=== PATIENT | female | born 1975 | race Caucasian/White ===

== ENCOUNTER 2021-12-26 01:37 | Inpatient (IN) ==
[2021-12-26 03:00] LABS: Hematocrit (blood only) 42.3 % (37-47); Hemoglobin 13.7 g/dL (12.0-16.0); Mean Corpuscular Hemoglobin 29.3 pg (25-34); Mean Corpuscular Hgb Conc 32.4 g/dL (32-36); Mean Corpuscular Volume 90.6 fL (80-100); Mean Platelet Volume 11.7 fL (7.4-10.4); Platelet Count 279 K/uL (130-400); RDW Coefficient of Variation 13.9 % (11.5-14.5); RDW Standard Deviation 46.2 fL (36.4-46.3); Red Blood Count 4.67 M/uL (4.2-5.4); White Blood Count 9.77 K/uL (4.8-10.8)
[2021-12-26 03:19] LABS: Acetaminophen < 3 ug/ml (10-30); Salicylate < 3.0 mg/dl (3.0-30)
[2021-12-26 03:20] LABS: Albumin Globulin Ratio 1.3 (0.9-2); BUN Creatinine Ratio 16.4 (10-20); Bilirubin,Total 0.3 mg/dl (0.2-1.0); Calcium 9.5 mg/dl (8.5-10.1); Creatinine Clr Calc Pharmacy 136.5 ml/min; Est GFR (African American) 127.8 ml/min; Est GFR (Non-African American) 110.3 ml/min; Globulin 3.2 gm/dl (2.5-4.0); Potassium 3.8 mmol/L (3.5-5.1); Total Protein 7.2 gm/dl (6.0-8.3)
[2021-12-26 03:45] LABS: Basophils # (auto) 0.01 K/uL (0-0.2); Basophils % (auto) 0.1 %; Echinocytes 1+; Eosinophils # (auto) 0.07 K/uL (0-0.5); Eosinophils % (auto) 0.7 %; Immature Granulocytes # (auto) 0.02 K/uL (0.00-0.02); Immature Granulocytes % (auto) 0.2 %; Lymphocytes # (auto) 2.47 K/uL (1.2-3.4); Lymphocytes % (auto) 25.3 %; Monocytes # (auto) 0.69 K/uL (0.11-0.59); Monocytes % (auto) 7.1 %; Neutrophils # (auto) 6.51 K/uL (1.4-6.5); Neutrophils % (auto) 66.6 %
[2021-12-26 03:47] LABS: Pregnancy Test, Urine Negative (Negative)
[2021-12-26 03:48] LABS: Appearance Urine Clear (Clear); Bilirubin Urine Negative (Negative); Blood Urine Negative (Negative); Color Urine Yellow; Epithelial Cell Urine Auto >30 /lpf (0-5); Glucose Urine UA Negative (Negative); Ketones Urine Trace (Negative); Leukocyte Esterase Urine Trace (Negative); Nitrite Urine Negative (Negative); Protein Urine Negative (Negative); Specific Gravity Urine 1.022 (1.000-1.030); Urobilinogen Urine Negative (Negative); pH Urine 5.5 (4.5-7.5)
[2021-12-26 04:01] LABS: Bacteria Urine Automated 2+ (Negative); Cast Urine Automated 0 /lpf (0-5); Mucus Urine Present (None Prsent); RBC Urine Automated 0-4 /hpf (0-4)
[2021-12-26 04:22] LABS: Amphetamines+Metham, Urine Neg (Neg); Barbiturates, Urine Neg (Neg); Benzodiazepine, Urine Neg (Neg); Cocaine, Urine Neg (Neg); MDMA (Ecstacy), Urine Neg (Neg); Methadone, Urine Neg (Neg); Opiate, Urine Neg (Neg); Phencyclidine, Urine Neg (Neg)
[2021-12-26] MEDS ORDERED: LITHIUM CARBONATE 300 MG TAB PO STA (06:18)
--- NOTE | 2021-12-26 07:52 | Emergency Department Note ---
Impression & Plan Thought disorder The case was signed out to Dr. Yousif for disposition ED Provider Note NAME: DILSHAD VAUGHN AGE: 46 SEX: F ARRIVES VIA: Police Cruiser INFORMANT: Patient ED PROVIDER(S): Corina Camara DO CHIEF COMPLAINT: Mental health evaluation PLAN: Disposition: The case will be signed out to Dr. Yousif at change of shift awaiting bed search Condition: Stable MEDICAL DECISION MAKING: This is a 46-year-old female patient with history of bipolar disorder and schizoaffective disorder from [facility] who presents to our emergency department with state police as a missing/endangered person. The patient was medically cleared. It is unclear whether or not the patient is taking her medications. Although, her lithium level is low. The ED psychiatric child welfare caseworker spoke with the patient's family and it seems that she may be falling commands from her phone which are guided guiding her to the point that she was unable to follow her GPS to return home to [place]. She was lost in [place]. They do not believe that she is safe to care for herself. She has not been able to return to her senior living in [place]. The 302 was signed as I believe she is in need of inpatient psychiatric care. A bed search will begin. Triage Nursing notes reviewed and agree with them. Additional history obtained from the family that spoke with our ED psychiatric child welfare caseworker Vital Signs: reviewed and unremarkable Differential diagnosis: Mood disorder; thought disorder, drug abuse, electrolyte abnormality Diagnostics interpreted by me: Laboratory studies: See below HPI: 46/F arrives for evaluation of mental health evaluation. The patient was brought to the emergency department by state police [place] after being listed as missing and endangered by her family. The patient left her court ordered mental health home in [place] and drove to [place] to visit a friend but then drove back towards the [facility] and ended up in [place]. Her family petitioned a 302 out of concern that she was a danger to herself as she was hallucinating and hearing voices from her phone and following with they were telling her to do. The patient does have a history of bipolar disorder and schizoaffective disorder and is not currently taking her medications according to the family members. ROS: See above HPI for pertinent positives & negatives. A total of 10 systems reviewed and were otherwise negative. PAST MEDICAL HISTORY:Bipolar disorder; schizoaffective disorder PAST SURGICAL HISTORY:The patient denied any surgical history FAMILY HISTORY:See Below SOCIAL HISTORY:The patient denies any drug or alcohol use; she lives in a group mental health home in [facility] HOME MEDICATIONS:See list ALLERGIES:None VITALS:See Below PHYSICAL EXAMINATION: HEENT: Head - normocephalic and atraumatic. Pupils are equal, round, and reactive to light. Extraocular eye muscles are intact, and sclera are anicteric. Nose - moist nasal mucosa without discharge. Mouth - moist buccal mucosa. Oropharynx is nonerythematous and there is no tonsillar exudate or edema noted. Neck: Supple; no thyromegaly or cervical lymphadenopathy Heart: Regular rate and rhythm. There is a normal S1 and S2 with no murmurs, clicks, or gallops appreciated. Lungs: Clear to auscultation bilaterally with no wheezes, rales, or rhonchi. Abdomen: Soft, completely nontender, nondistended, with good bowel sounds. There are no palpable pulsatile masses or hepatosplenomegaly. There is no guarding, rigidity, or rebound noted. Extremities: No evidence of cyanosis, clubbing, or edema. There are easily palpable peripheral pulses. Skin: warm and dry with good turgor and no rashes. ED COURSE: Times/Reassessments: 225: The patient was evaluated in room A5. A complete history and physical was performed. The ED psychiatric child welfare caseworker spoke with the patient's family members on the phone who voiced significant concern for the patient's safety. Laboratory studies were drawn and the patient was able to give a urine specimen so that we were able to get her medically cleared. The patient meets criteria for inpatient psychiatric care as she is unable to care for herself and make rational/safe decisions as she is following commands from her phone. 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 Required: No Beliefs That Will Affect Care: None Feels Safe at Home: Yes Assistive Devices: None Allergies Allergies Allergy/AdvReac Type Severity Reaction Status Date / Time No Known Allergies Allergy Verified 12/26/21 01:56 Home Meds Home Medications Medication Instructions Recorded Confirmed lithium carbonate 600 mg capsule 600 mg PO BID 12/26/21 12/26/21 olanzapine 15 mg disintegrating 15 mg PO HS 12/26/21 12/26/21 tablet Results & Data (ED) Vital Signs Vital Signs - 24 hr 12/26/21 01:42 12/26/21 03:30 12/26/21 10:22 Temperature 37 C Temperature Source Oral Pulse Rate [Right Finger] 65 87 88 Pulse Rhythm [Right Finger] Regular Pulse Strength [Right Finger] Normal Respiratory Rate 18 18 18 Respiratory Effort / Characteristics Non-Labored Spontaneous Non-Labored Spontaneous Respiratory Depth Normal Normal Blood Pressure [Left Arm] 128/82 146/91 H 129/81 Blood Pressure Mean [Left Arm] 97 109 97 Blood Pressure Position [Left Arm] Lying Pulse Oximetry 98 99 99 Oxygen Delivery Method Room Air Room Air Room Air Sepsis Recent Fever Within 48 Hours No Sepsis New/Unexplained Change in Mental Status N/A Sepsis Action Taken by Nursing No Action Required 12/26/21 10:32 Temperature Temperature Source Pulse Rate [Right Finger] Pulse Rhythm [Right Finger] Pulse Strength [Right Finger] Respiratory Rate Respiratory Effort / Characteristics Respiratory Depth Blood Pressure [Left Arm] Blood Pressure Mean [Left Arm] Blood Pressure Position [Left Arm] Pulse Oximetry Oxygen Delivery Method Room Air Sepsis Recent Fever Within 48 Hours Sepsis New/Unexplained Change in Mental Status Sepsis Action Taken by Nursing Laboratory Data Result diagrams: 12/26/21 02:41 12/26/21 02:41 Lab Results 12/26/21 12/26/21 12/26/21 Range/Units 02:41 02:41 02:41 WBC 9.77 (4.8-10.8) K/uL RBC 4.67 (4.2-5.4) M/uL Hgb 13.7 (12.0-16.0) g/dL Hct 42.3 (37-47) % MCV 90.6 (80-100) fL MCH 29.3 (25-34) pg MCHC 32.4 (32-36) g/dL RDW Std Deviation 46.2 (36.4-46.3) fL RDW Coeff of Mika 13.9 (11.5-14.5) % Plt Count 279 (130-400) K/uL MPV 11.7 H (7.4-10.4) fL Immature Gran % (Auto) 0.2 % Neut % (Auto) 66.6 % Lymph % (Auto) 25.3 % Gibson % (Auto) 7.1 % Eos % (Auto) 0.7 % Baso % (Auto) 0.1 % Neut # (Auto) 6.51 H (1.4-6.5) K/uL Lymph # (Auto) 2.47 (1.2-3.4) K/uL Gibson # (Auto) 0.69 H (0.11-0.59) K/uL Eos # (Auto) 0.07 (0-0.5) K/uL Baso # (Auto) 0.01 (0-0.2) K/uL Immature Gran # (Auto) 0.02 (0.00-0.02) K/uL Echinocytes 1+ Sodium 138 (136-145) mmol/L Potassium 3.8 (3.5-5.1) mmol/L Chloride 105 (98-107) mmol/L Carbon Dioxide 28 (21-32) mmol/L Anion Gap 5 (3-11) BUN 10 (6-23) mg/dl Creatinine 0.61 (0.6-1.2) mg/dl Est Cr Clr Drug Dosing 136.5 ml/min Est GFR ( Amer) 127.8 ml/min Est GFR (Non-Af Amer) 110.3 ml/min BUN/Creatinine Ratio 16.4 (10-20) Glucose 91 (70-99(Fasting)) mg/dl Calcium 9.5 (8.5-10.1) mg/dl Total Bilirubin 0.3 (0.2-1.0) mg/dl AST 13 (13-39) U/L ALT 10 (7-52) U/L Alkaline Phosphatase 62 (34-104) U/L Total Protein 7.2 (6.0-8.3) gm/dl Albumin 4.0 (3.4-5.0) gm/dl Globulin 3.2 (2.5-4.0) gm/dl Albumin/Globulin Ratio 1.3 (0.9-2) TSH 2.036 (0.300-4.500) uIu/ml Salicylates (3.0-30) mg/dl Acetaminophen (10-30) ug/ml [place] (0.6-1.2) mmol/L Ethyl Alcohol mg/dL (<10.0) mg/dl SARS-CoV-2, RNA, NAAT (NEGATIVE) 12/26/21 12/26/21 12/26/21 Range/Units 02:41 02:41 02:41 WBC (4.8-10.8) K/uL RBC (4.2-5.4) M/uL Hgb (12.0-16.0) g/dL Hct (37-47) % MCV (80-100) fL MCH (25-34) pg MCHC (32-36) g/dL RDW Std Deviation (36.4-46.3) fL RDW Coeff of Mika (11.5-14.5) % Plt Count (130-400) K/uL MPV (7.4-10.4) fL Immature Gran % (Auto) % Neut % (Auto) % Lymph % (Auto) % Gibson % (Auto) % Eos % (Auto) % Baso % (Auto) % Neut # (Auto) (1.4-6.5) K/uL Lymph # (Auto) (1.2-3.4) K/uL Gibson # (Auto) (0.11-0.59) K/uL Eos # (Auto) (0-0.5) K/uL Baso # (Auto) (0-0.2) K/uL Immature Gran # (Auto) (0.00-0.02) K/uL Echinocytes Sodium (136-145) mmol/L Potassium (3.5-5.1) mmol/L Chloride (98-107) mmol/L Carbon Dioxide (21-32) mmol/L Anion Gap (3-11) BUN (6-23) mg/dl Creatinine (0.6-1.2) mg/dl Est Cr Clr Drug Dosing ml/min Est GFR ( Amer) ml/min Est GFR (Non-Af Amer) ml/min BUN/Creatinine Ratio (10-20) Glucose (70-99(Fasting)) mg/dl Calcium (8.5-10.1) mg/dl Total Bilirubin (0.2-1.0) mg/dl AST (13-39) U/L ALT (7-52) U/L Alkaline Phosphatase (34-104) U/L Total Protein (6.0-8.3) gm/dl Albumin (3.4-5.0) gm/dl Globulin (2.5-4.0) gm/dl Albumin/Globulin Ratio (0.9-2) TSH (0.300-4.500) uIu/ml Salicylates < 3.0 L (3.0-30) mg/dl Acetaminophen < 3 L (10-30) ug/ml [place] 0.2 L (0.6-1.2) mmol/L Ethyl Alcohol mg/dL < 10.0 (<10.0) mg/dl SARS-CoV-2, RNA, NAAT (NEGATIVE) 12/26/21 Range/Units 04:10 WBC (4.8-10.8) K/uL RBC (4.2-5.4) M/uL Hgb (12.0-16.0) g/dL Hct (37-47) % MCV (80-100) fL MCH (25-34) pg MCHC (32-36) g/dL RDW Std Deviation (36.4-46.3) fL RDW Coeff of Mika (11.5-14.5) % Plt Count (130-400) K/uL MPV (7.4-10.4) fL Immature Gran % (Auto) % Neut % (Auto) % Lymph % (Auto) % Gibson % (Auto) % Eos % (Auto) % Baso % (Auto) % Neut # (Auto) (1.4-6.5) K/uL Lymph # (Auto) (1.2-3.4) K/uL Gibson # (Auto) (0.11-0.59) K/uL Eos # (Auto) (0-0.5) K/uL Baso # (Auto) (0-0.2) K/uL Immature Gran # (Auto) (0.00-0.02) K/uL Echinocytes Sodium (136-145) mmol/L Potassium (3.5-5.1) mmol/L Chloride (98-107) mmol/L Carbon Dioxide (21-32) mmol/L Anion Gap (3-11) BUN (6-23) mg/dl Creatinine (0.6-1.2) mg/dl Est Cr Clr Drug Dosing ml/min Est GFR ( Amer) ml/min Est GFR (Non-Af Amer) ml/min BUN/Creatinine Ratio (10-20) Glucose (70-99(Fasting)) mg/dl Calcium (8.5-10.1) mg/dl Total Bilirubin (0.2-1.0) mg/dl AST (13-39) U/L ALT (7-52) U/L Alkaline Phosphatase (34-104) U/L Total Protein (6.0-8.3) gm/dl Albumin (3.4-5.0) gm/dl Globulin (2.5-4.0) gm/dl Albumin/Globulin Ratio (0.9-2) TSH (0.300-4.500) uIu/ml Salicylates (3.0-30) mg/dl Acetaminophen (10-30) ug/ml [place] (0.6-1.2) mmol/L Ethyl Alcohol mg/dL (<10.0) mg/dl SARS-CoV-2, RNA, NAAT NEGATIVE (NEGATIVE) Administered Medications [place] Carbonate ([place] Carbonate 300 Mg Tab) 600 mg PO BID GONSALO Stop: 01/25/22 20:59 Last Admin: 12/26/21 21:51 Dose: 600 mg Documented by: [id number] Olanzapine (Olanzapine 5 Mg Tablet) 15 mg PO HS GONSALO Stop: 01/25/22 20:59 Last Admin: 12/26/21 21:51 Dose: 15 mg Documented by: [id number] Discontinued Medications [place] Carbonate ([place] Carbonate 300 Mg Tab) 600 mg PO NOW STA Stop: 12/26/21 06:19 Last Admin: 12/26/21 06:45 Dose: 600 mg Documented by: [id number] Olanzapine (Olanzapine 5 Mg Tablet) 5 mg PO NOW STA Stop: 12/26/21 09:46 Last Admin: 12/26/21 10:18 Dose: 5 mg Documented by: [id number] Discharge Plan Visit Data Chief Complaint: Mental Health Evaluation ED Provider: Corina Camara Discharge Problem: Thought disorder Patient Disposition: Admitted As Inpatient Discharge Instructions Interventions: ED Discharge Assessment Last Done: 12/26/21 10:32
[2021-12-26] MEDS ORDERED: OLANZapine 5 MG TABLET PO STA (09:45)
[2021-12-26] MEDS ORDERED: ALUMINUM/MAGNESIUM SUSP 30 ML UDC PO PRN (10:39)
[2021-12-26] MEDS ORDERED: BISMUTH SUBSALICYLATE LIQD 236 ML PO PRN (10:39)
[2021-12-26] MEDS ORDERED: SODIUM CHLORIDE 0.65% NA SOLN 45 ML (OCEAN) PRN (10:39)
[2021-12-26] MEDS ORDERED: MAGNESIUM HYDROXIDE SUSP 30 ML UDC PO PRN (10:39)
[2021-12-26] MEDS ORDERED: hydrOXYzine HCl 25 MG TAB PO PRN ×2 (10:39)
[2021-12-26] MEDS ORDERED: ACETAMINOPHEN 325 MG TAB PO PRN (10:39)
--- NOTE | 2021-12-26 13:03 | History & Physical ---
Date of Service December 26, 2021 Impression / Recommendations Impression 46 yo female with reported history of schizophrenia and/or bipolar (so schizoaffective most likely) presented to ED via police, initial 302 petition was by a cousin in [place], as she eloped from her [facility] and has been driving around for the past 12 days and not taking her prescription medication resulting in disorganization and psychosis (manic in presentation). MNPR given level of psychosis (1) Schizoaffective disorder: The patient was admitted to the [facility] ([facility]) on q15 min checks (behavioral with suicide precautions) for safety. The patient will participate in group, recreational, and milieu therapies and will be offered additional individual and family sessions as clinically appropriate. The patient is willing to resume her previous doses of Ferney and Zyprexa and voiced reasonable understanding of risks/benefits/alternatives. May benefit form an atypical that can be given as ALMEIDA. Will attempt fasting labs in am. Inventory Assets Strengths: seems intelligent, has services in [place] [facility], concerned family Needs: restart medication, coordination with outpatient services Suicide Risk Level Suicide Risk Level: Moderate (q15 min suicide checks) Suicide Risk Level Comments: patient is behaving unpredictably and denies hx of attempts though family says otherwise, hx of repeated hospitalizations. Risk Factors Assessment : Yes Do You Have Access To A Gun?: No Health Problems: No Mental Health Diagnoses: Yes Substance Use Disorders: No Previous Psychiatric Hospitalization: Yes Protective Factors Assessment Employed: No Supportive Family: Yes Psychiatric History Identifying Data TYESHA VAUGHN is a 46-year-old F who currently lives in supportive housing in [place], has a history of bipolar or schizoaffective disorder, and was admitted on 12/26/21 10:40 on a 302 involuntary commitment for disorganized behavior. Chief Complaint "I guess I should have gone straight back to [place]." History of Present Illness The patient is an unreliable historian although she seems superficially cooperative she has short attention and cannot expand on details. I attempted to confirm the information provided in the ED. The patient states she's employed by [employer] and would like to work between [place]. She denies hearing voices and states that her cousin is "just trying to play tricks". She denies having any legal charges. She states she's been taking her lithium (level says otherwise). It is unclear when she ran out of Zyprexa. She seemed surprised to hear she was on an involuntary commitment. Reviewed her rights that in [place] this is for up to 120 hrs. She denies having any side effects to meds and states she's adjusted to them over the years. She cannot explain why she was driving around [place] other than [address] is confusing and "kept getting on and off the highway." She thanked me for my timing abruptly ending the interview. She was cooperative with Ferney 600 mgX1 and several hours later Zyprexa 5 mg as ordered. She was not agitated or aggressive, just confused/anxious. As per ED CM: Met with patient upon arrival to ED to complete mental health evaluation. Tyesha stated she is from [place], [place]. She stated she has been traveling to the [facility] to visit family. Tyesha was unable to state family she was visiting. She stated she made her way to [place] and turned around because she was "concerned the person I was going to visit would have conflict." Tyesha stated she has been driving around [place] for two days because she was having difficulty navigating the roads. Tyesha stated she couldn't "navigate the medians." She stated she has been sleeping in her car since in [place]. Tyesha denies any SI and denies stating she would "rather on the highway." Tyesha denies any prior suicide attempts. However, her cousin/Radha stated she "tried to overdose on pills with in the past year." Tyesha denies HI or aggression. She denies report of cousin that she went to [facility] that has a no contact order on her for stalking and harassment which Tyesha spend time in [facility] for in the past. Tyesha would start to answer question but appears confused and unable to complete a thought. Tyesha refused to provide names of her outpatient psychiatrist and therapist stating "I know I'm not leaving here and don't want them bothered. Tyesha stated she has a "cold header that is the it audit manager of person and gives reports to the three dimensional map modeler that I'm a productive member of society. She stated she is "probated through court." She admits to living in Supportive Housing in [place], [place]. She refused to provide contact information for Supportive Housing home but did provide consent for this CM to call the home. She stated the name of home was [facility]. Tyesha eventually provided phone number to supportive living home and this CM was unsuccessful at reaching anyone by phone. Tyesha appears very guarded and suspicious. Call to [place]/Radha to obtain additional information and clarification. Radha stated Tyesha has been calling her several times a day. She stated Tyesha told her she ran out of her medication approx. 12 days ago. (Tyesha reported she is taking her medication. However, lithium level low at 0.2). Radha stated Tyesha is manic, hallucinating, and delusional. Radha stated Tyesha is hearing voices and whispers through her phone which is reason she is unable to navigate her way home. She stated voices are telling her directions to drive. Radha stated Tyesha told her that she is also hearing voices telling "stories of graphic violence, chemical bombs, hostage situations, and the killing of people." Sumamelissa stated Tyesha called police on [place] and her father with report that they were creating chemical bombs and killing people. Radha confirm that [place] has a conservator through the court that monitors her treatment and wellbeing. Radha stated Tyesha was traveling to see her mother who refused her visit 3X before patient turned around to return to [place]. Radha stated patient believes her phone is hacked. Radha stated patient was charged and spent time in [facility] for stalking, harrassment, and violating a no contact order. Radha stated patient told her she went to [facility] when she was not home. Tyesha has been inpatient multiple times in the past, primarily in [place]. Past Psychiatric History Current Psychiatric Diagnosis: Schizophrenia Do You Have Access To A Gun?: No Describe Attempts in the Past: Cousin stated she "tried to overdose on pills with in the past year." Past Medication Trials: per surescripts Haldol 7 mg BID, Latuda 40 mg, Ferney 600 mg BID, Zyprexa Allergies Allergy/AdvReac Type Severity Reaction Status Date / Time No Known Allergies Allergy Verified 12/26/21 01:56 Home Medications Medication Instructions Recorded Confirmed Type lithium carbonate 600 mg capsule 600 mg PO BID 12/26/21 12/26/21 History olanzapine 15 mg disintegrating 15 mg PO HS 04/29/22 04/29/22 History tablet Family History Family History of: Refuses To Discuss Alcohol History Hx of Alcohol Use Over the Past 12 Months: No AUDIT Total Score: 1 Smoking Use Have You Smoked or Used Tobacco Products in the Last 30 Days: No Smoking Status: Never smoker Substance History Hx of Prescription Med Misuse Over the Past 12 Months: No Hx of Over the Counter Med Misuse Over the Past 12 Months: No Hx of Inhalent Misuse Over the Past 12 Months: No Hx of Organic Substance Use Over the Past 12 Months: No Hx of Illegal Substances/Street Drug Use Over Past 12 Months: No Problems as a Result of Past Substance Use: None Identified Personal History Living Arrangements: Supervised Living Marital Status: Single Number Of Children: no known Beliefs That Will Affect Care: None Current Legal Problems: Yes (likely on probation after fci time for harassment/stalking of a [employer] prof.) Psychological Trauma History Comment: patient unable to reliably give hx Patient History Medical History (Updated 12/26/21 @ 15:45 by Mariangel Kee MD) No known health problems Social History Smoking Status: Never smoker Preferred Language: Russian Communication Ability: Impaired Communication Ability Comment: Talking in circles Survey Workers Supervisor Required: No Beliefs That Will Affect Care: None Feels Safe at Home: Yes Assistive Devices: None Review of Systems Review of Systems: All systems reviewed & are unremarkable except as noted in HPI & below Physical Exam Psychiatric: Orientation: alert Apperance: appropriately dressed and appropriately groomed Eye Contact: good eye contact Motor Behavior: no abnormal motor movements Speech: normal rate/rhythm/volume of speech Affect: + blunted affect Mood: + anxious mood Thought Process: + tangential thought process Thought Content: + delusions Suicidal Thoughts: denies suicidal thoughts Homicidal Thoughts: denies homicidal thoughts Hallucinations: no auditory hallucinations and no visual hallucinations Cognition: language grossly intact; + attention not intact Insight: + poor insight Judgement: + poor judgement Vital Signs (Past 24 Hours): Last Vital Signs Temp 37 C 12/26/21 10:51 Pulse 88 12/26/21 10:51 Resp 18 12/26/21 10:51 BP 129/81 12/26/21 10:51 Pulse Ox 99 12/26/21 10:51 Exam Statement: A physical exam was performed in the ED by Dr. Camara for the purposes of medical clearance. I accept that physical as correct and adequate for the purposes of the inpatient physical exam. Results & Data ([facility]) Laboratory Results Laboratory Results - last 24 hr 12/26/21 12/26/21 12/26/21 02:41 02:41 02:41 WBC 9.77 RBC 4.67 Hgb 13.7 Hct 42.3 MCV 90.6 MCH 29.3 MCHC 32.4 RDW Std Deviation 46.2 RDW Coeff of Mika 13.9 Plt Count 279 MPV 11.7 H Immature Gran % (Auto) 0.2 Neut % (Auto) 66.6 Lymph % (Auto) 25.3 Real % (Auto) 7.1 Eos % (Auto) 0.7 Baso % (Auto) 0.1 Neut # (Auto) 6.51 H Lymph # (Auto) 2.47 Real # (Auto) 0.69 H Eos # (Auto) 0.07 Baso # (Auto) 0.01 Immature Gran # (Auto) 0.02 Echinocytes 1+ Sodium 138 Potassium 3.8 Chloride 105 Carbon Dioxide 28 Anion Gap 5 BUN 10 Creatinine 0.61 Est Cr Clr Drug Dosing 136.5 Est GFR ( Amer) 127.8 Est GFR (Non-Af Amer) 110.3 BUN/Creatinine Ratio 16.4 Glucose 91 Calcium 9.5 Total Bilirubin 0.3 AST 13 ALT 10 Alkaline Phosphatase 62 Total Protein 7.2 Albumin 4.0 Globulin 3.2 Albumin/Globulin Ratio 1.3 TSH 2.036 Urine Color Urine Appearance Urine pH Ur Specific [place] Urine Protein Urine Glucose (UA) Urine Ketones Urine Blood Urine Nitrite Urine Bilirubin Urine Urobilinogen Ur Leukocyte Esterase Urine WBC (Auto) Urine RBC (Auto) U Hyaline Cast (Auto) U Epithel Cells (Auto) Urine Bacteria (Auto) Urine Mucus Urine Test Salicylates Urine Opiates Screen Ur Methadone, Qual Acetaminophen Urine Barbiturates Ur Phencyclidine (PCP) U Amphetamin/Meth Scrn MDMA (Ecstasy) Screen U Benzodiazepines Scrn Ferney Ur Cocaine Metabolite U Marijuana (THC) Screen Ethyl Alcohol mg/dL SARS-CoV-2, RNA, NAAT 12/26/21 12/26/21 12/26/21 02:41 02:41 02:41 WBC RBC Hgb Hct MCV MCH MCHC RDW Std Deviation RDW Coeff of Mika Plt Count MPV Immature Gran % (Auto) Neut % (Auto) Lymph % (Auto) Real % (Auto) Eos % (Auto) Baso % (Auto) Neut # (Auto) Lymph # (Auto) Real # (Auto) Eos # (Auto) Baso # (Auto) Immature Gran # (Auto) Echinocytes Sodium Potassium Chloride Carbon Dioxide Anion Gap BUN Creatinine Est Cr Clr Drug Dosing Est GFR ( Amer) Est GFR (Non-Af Amer) BUN/Creatinine Ratio Glucose Calcium Total Bilirubin AST ALT Alkaline Phosphatase Total Protein Albumin Globulin Albumin/Globulin Ratio TSH Urine Color Urine Appearance Urine pH Ur Specific [place] Urine Protein Urine Glucose (UA) Urine Ketones Urine Blood Urine Nitrite Urine Bilirubin Urine Urobilinogen Ur Leukocyte Esterase Urine WBC (Auto) Urine RBC (Auto) U Hyaline Cast (Auto) U Epithel Cells (Auto) Urine Bacteria (Auto) Urine Mucus Urine Test Salicylates < 3.0 L Urine Opiates Screen Ur Methadone, Qual Acetaminophen < 3 L Urine Barbiturates Ur Phencyclidine (PCP) U Amphetamin/Meth Scrn MDMA (Ecstasy) Screen U Benzodiazepines Scrn Ferney 0.2 L Ur Cocaine Metabolite U Marijuana (THC) Screen Ethyl Alcohol mg/dL < 10.0 SARS-CoV-2, RNA, NAAT 12/26/21 12/26/21 12/26/21 04:10 Unknown Unknown WBC RBC Hgb Hct MCV MCH MCHC RDW Std Deviation RDW Coeff of Mika Plt Count MPV Immature Gran % (Auto) Neut % (Auto) Lymph % (Auto) Real % (Auto) Eos % (Auto) Baso % (Auto) Neut # (Auto) Lymph # (Auto) Real # (Auto) Eos # (Auto) Baso # (Auto) Immature Gran # (Auto) Echinocytes Sodium Potassium Chloride Carbon Dioxide Anion Gap BUN Creatinine Est Cr Clr Drug Dosing Est GFR ( Amer) Est GFR (Non-Af Amer) BUN/Creatinine Ratio Glucose Calcium Total Bilirubin AST ALT Alkaline Phosphatase Total Protein Albumin Globulin Albumin/Globulin Ratio TSH Urine Color Yellow Urine Appearance Clear Urine pH 5.5 Ur Specific [place] 1.022 Urine Protein Negative Urine Glucose (UA) Negative Urine Ketones Trace H Urine Blood Negative Urine Nitrite Negative Urine Bilirubin Negative Urine Urobilinogen Negative Ur Leukocyte Esterase Trace H Urine WBC (Auto) 5-10 H Urine RBC (Auto) 0-4 U Hyaline Cast (Auto) 0 U Epithel Cells (Auto) >30 H Urine Bacteria (Auto) 2+ H Urine Mucus Present A Urine Test Salicylates Urine Opiates Screen Neg Ur Methadone, Qual Neg Acetaminophen Urine Barbiturates Neg Ur Phencyclidine (PCP) Neg U Amphetamin/Meth Scrn Neg MDMA (Ecstasy) Screen Neg U Benzodiazepines Scrn Neg Ferney Ur Cocaine Metabolite Neg U Marijuana (THC) Screen Neg Ethyl Alcohol mg/dL SARS-CoV-2, RNA, NAAT NEGATIVE 12/26/21 Unknown WBC RBC Hgb Hct MCV MCH MCHC RDW Std Deviation RDW Coeff of Miak Plt Count MPV Immature Gran % (Auto) Neut % (Auto) Lymph % (Auto) Real % (Auto) Eos % (Auto) Baso % (Auto) Neut # (Auto) Lymph # (Auto) Real # (Auto) Eos # (Auto) Baso # (Auto) Immature Gran # (Auto) Echinocytes Sodium Potassium Chloride Carbon Dioxide Anion Gap BUN Creatinine Est Cr Clr Drug Dosing Est GFR ( Amer) Est GFR (Non-Af Amer) BUN/Creatinine Ratio Glucose Calcium Total Bilirubin AST ALT Alkaline Phosphatase Total Protein Albumin Globulin Albumin/Globulin Ratio TSH Urine Color Urine Appearance Urine pH Ur Specific [place] Urine Protein Urine Glucose (UA) Urine Ketones Urine Blood Urine Nitrite Urine Bilirubin Urine Urobilinogen Ur Leukocyte Esterase Urine WBC (Auto) Urine RBC (Auto) U Hyaline Cast (Auto) U Epithel Cells (Auto) Urine Bacteria (Auto) Urine Mucus Urine Test Negative Salicylates Urine Opiates Screen Ur Methadone, Qual Acetaminophen Urine Barbiturates Ur Phencyclidine (PCP) U Amphetamin/Meth Scrn MDMA (Ecstasy) Screen U Benzodiazepines Scrn Ferney Ur Cocaine Metabolite U Marijuana (THC) Screen Ethyl Alcohol mg/dL SARS-CoV-2, RNA, NAAT Current Inpatient Medications Current Inpatient Medications: Current Inpatient Medications Acetaminophen (Acetaminophen 325 Mg Tab) 650 mg PO Q4H PRN PRN Reason: Headache or Minor Fever Stop: 01/25/22 10:38 Al Hydrox/Mg Hydrox/Simethicone (Aluminum/Magnesium Susp 30 Ml Udc) 30 ml PO Q4H PRN PRN Reason: GI Upset Stop: 01/25/22 10:38 Bismuth Subsalicylate (Bismuth Subsalicylate Liqd 236 Ml) 15 ml PO PRN PRN PRN Reason: Loose Stool Stop: 01/25/22 10:38 Hydroxyzine HCl (Hydroxyzine Hcl 25 Mg Tab) 50 mg PO HSZ PRN PRN Reason: Insomnia Stop: 01/25/22 10:38 Hydroxyzine HCl (Hydroxyzine Hcl 25 Mg Tab) 25 mg PO Q4H PRN PRN Reason: Anxiety Stop: 01/25/22 10:38 Ferney Carbonate (Ferney Carbonate 300 Mg Tab) 600 mg PO BID GONSALO Stop: 01/25/22 20:59 Magnesium Hydroxide (Magnesium Hydroxide Susp 30 Ml Udc) 30 ml PO DAILY PRN PRN Reason: Constipation Stop: 01/25/22 10:38 Olanzapine (Olanzapine 5 Mg Tablet) 15 mg PO HS GONSALO Stop: 01/25/22 20:59 Sodium Chloride (Sodium Chloride 0.65% Na Soln 45 Ml ([place])) 1 - 2 sprays NA PRN PRN PRN Reason: Nasal Dryness/Congestion Stop: 01/25/22 10:38
--- NOTE | 2021-12-26 14:59 | Emergency Department Note ---
ED Visit Note Patient was signed out to me awaiting mental health admission. She was accepted at [address] .
[2021-12-26] MEDS: LITHIUM CARBONATE 300 MG TAB PO SCH (21:51)
[2021-12-26] MEDS: OLANZapine 5 MG TABLET PO SCH (21:51)
[2021-12-27 07:57] LABS: Chol HDL Ratio 2.5 (0-5)
[2021-12-27] MEDS: LITHIUM CARBONATE 300 MG TAB PO SCH ×2 (08:52→21:41)
--- NOTE | 2021-12-27 16:50 | Psychiatric Progress Note ---
Date of Service December 27, 2021 Impression / Recommendations Impression 46 yo woman with reported history of schizoaffective disorder presented to ED via police, initial 302 petition was by a cousin, as she eloped from her prison in [place] and has been driving around for the past 12 days and not taking her prescription medication resulting in disorganization and psychosis (manic in presentation). 302 expires on 01/01 at ~5am. Diagnostically consistent with acute isabella/psychosis from schizoaffective disorder. The patient is deemed unstable and requires psychiatric hospitalization for diagnostic clarification, safety and stabilization, medication management and development of further coping skills. MNPR due to paranoid and acute psychosis 12/27/21: Encouragingly slept well and is taking her medications but remains very guarded and unable to tolerate prolonged interactions. Agreed to sign ROIs after staff help her locate phone numbers in her phone. Reviewed metabolic labs which were normal. Tolerating re-initiation of lithium and olanzapine. (1) Schizoaffective disorder: 12/17/21: Continue with Li and olanzapine. 12/26/21: The patient was admitted to the [facility]) on q15 min checks (behavioral with suicide precautions) for safety. The patient will participate in group, recreational, and milieu therapies and will be offered additional individual and family sessions as clinically appropriate. The patient is willing to resume her previous doses of [place] and Zyprexa and voiced reasonable understanding of risks/benefits/alternatives. May benefit form an atypical that can be given as ALMEIDA. Will attempt fasting labs in am. Suicide Risk Level Suicide Risk Level: Moderate (q15 min suicide checks) Suicide Risk Level Comments: Acute risk is moderate given acute psychosis with paranoia and recent disorganization but denies SI today. Risk Factors Assessment : Yes Do You Have Access To A Gun?: No Health Problems: No Mental Health Diagnoses: Yes Substance Use Disorders: No Previous Psychiatric Hospitalization: Yes Protective Factors Assessment Employed: No Supportive Family: Yes Interval History Identifying Information DILSHAD VAUGHN is a 46-year-old F who currently lives in supportive housing in [place], has a history of bipolar or schizoaffective disorder, and was admitted on 12/26/21 10:40 on a 302 involuntary commitment for disorganized behavior. Chief Complaint "I'm fine I guess". Review of Systems Sleep Information Total Hours of Sleep: 8.5 Meal Information Percent Meal Consumed - Breakfast: 100 Percent Meal Consumed - Lunch: 100 Percent Meal Consumed - Dinner: 0 Nutrition Comment: Pt is currently sleeping Subjective Subjective Patient was seen & assessed and interval progress reviewed with treatment team nursing and social work. Remains in behavioral control though becomes irritable easily. States frustration with 302 noting that she was just trying to find her way onto [address] from [place] "I was just stuck because they had backroads to get there". Tolerating lithium and olanzapine without any side effects. Reviewed results of fasting labwork. She agreed to sign ROIs for her provider in [place] and family in [place]. Fairly guarded and unable to tolerate prolonged discussion. States she slept well. Physical Exam Psychiatric Orientation: alert Apperance: appropriately dressed and appropriately groomed Eye Contact: good eye contact Motor Behavior: no abnormal motor movements Speech: normal rate/rhythm/volume of speech Affect: + blunted affect Mood: + anxious mood Thought Process: + tangential thought process Thought Content: + delusions Suicidal Thoughts: denies suicidal thoughts Homicidal Thoughts: denies homicidal thoughts Hallucinations: no auditory hallucinations and no visual hallucinations Cognition: language grossly intact; + attention not intact Insight: + poor insight Judgement: + poor judgement Vital Signs (Past 24 Hours) Last Vital Signs Temp 36.9 C 12/27/21 06:42 Pulse 85 12/27/21 06:42 Resp 18 12/27/21 06:42 BP 86/66 L 12/27/21 06:43 Pulse Ox 99 12/26/21 10:51 Results & Data ([facility]) Laboratory Results Laboratory Results - last 24 hr 12/27/21 06:49 Fasting Glucose 90 Triglycerides 51 Cholesterol 135 LDL Cholesterol, Calc 71 VLDL Cholesterol, Calc 10 HDL Cholesterol 54 Cholesterol/HDL Ratio 2.5 Current Inpatient Medications Current Inpatient Medications: Current Inpatient Medications Acetaminophen (Acetaminophen 325 Mg Tab) 650 mg PO Q4H PRN PRN Reason: Headache or Minor Fever Stop: 01/25/22 10:38 Al Hydrox/Mg Hydrox/Simethicone (Aluminum/Magnesium Susp 30 Ml Udc) 30 ml PO Q4H PRN PRN Reason: GI Upset Stop: 01/25/22 10:38 Bismuth Subsalicylate (Bismuth Subsalicylate Liqd 236 Ml) 15 ml PO PRN PRN PRN Reason: Loose Stool Stop: 01/25/22 10:38 Hydroxyzine HCl (Hydroxyzine Hcl 25 Mg Tab) 50 mg PO HSZ PRN PRN Reason: Insomnia Stop: 01/25/22 10:38 Hydroxyzine HCl (Hydroxyzine Hcl 25 Mg Tab) 25 mg PO Q4H PRN PRN Reason: Anxiety Stop: 01/25/22 10:38 [place] Carbonate ([place] Carbonate 300 Mg Tab) 600 mg PO BID GONSALO Stop: 01/25/22 20:59 Last Admin: 12/27/21 08:52 Dose: 600 mg Documented by: Magnesium Hydroxide (Magnesium Hydroxide Susp 30 Ml Udc) 30 ml PO DAILY PRN PRN Reason: Constipation Stop: 01/25/22 10:38 Olanzapine (Olanzapine 5 Mg Tablet) 15 mg PO HS GONSALO Stop: 01/25/22 20:59 Last Admin: 12/26/21 21:51 Dose: 15 mg Documented by: Sodium Chloride (Sodium Chloride 0.65% Na Soln 45 Ml ([place])) 1 - 2 sprays NA PRN PRN PRN Reason: Nasal Dryness/Congestion Stop: 01/25/22 10:38 Mental Health & Subst Abuse Tx Therapist Name of Therapist: Patient reports therapist, but would not give name
[2021-12-27] MEDS: OLANZapine 5 MG TABLET PO SCH (21:41)
[2021-12-28] MEDS: LITHIUM CARBONATE 300 MG TAB PO SCH ×2 (08:53→21:11)
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
[2021-12-28] MEDS: OLANZapine 5 MG TABLET PO SCH (21:11)
[2021-12-29] MEDS: LITHIUM CARBONATE 300 MG TAB PO SCH ×2 (08:49→21:39)
--- NOTE | 2021-12-29 08:58 | Psychiatric Progress Note ---
Date of Service December 29, 2021 Impression / Recommendations Impression 46 yo woman with reported history of schizoaffective disorder presented to ED via police, initial 302 petition was by a cousin, as she eloped from her jail in [place] and has been driving around for the past 12 days and not taking her prescription medication resulting in disorganization and psychosis (manic in presentation). 302 expires on 12/31 at ~5am. Diagnostically consistent with acute isabella/psychosis from schizoaffective disorder. The patient is deemed unstable and requires psychiatric hospitalization for diagnostic clarification, safety and stabilization, medication management and development of further coping skills. MNPR due to paranoid and acute psychosis 12/29/21: Continues to sleep well, tolerating medications, still guarded but able to tolerate more discussions about recent events and not brining up any paranoia or delusions such as prior to admission. Continues to have poor insight about decision to abruptly leave jail 2 weeks ago. Reviewed conversatorship paperwork, they have no legal sway in terms of psychiatric hospitalization, more for being able to help manage finances. (1) Schizoaffective disorder: 12/29/21: Continue medications and tx plan. Li level in AM. Spoke with jail director. Reviewed conservatorship legal paperwork. Will attempt to contact her psychiatrist. 12/28/21: Continue medications and tx plan. Will contact conservator tomorrow. 12/27/21: Continue with Li and olanzapine. 12/26/21: The patient was admitted to the [facility] ([facility] mental health unit) on q15 min checks (behavioral with suicide precautions) for safety. The patient will participate in group, recreational, and milieu therapies and will be offered additional individual and family sessions as clinically appropriate. The patient is willing to resume her previous doses of [place] and Zyprexa and voiced reasonable understanding of risks/benefits/alternatives. May benefit form an atypical that can be given as ALMEIDA. Will attempt fasting labs in am. Suicide Risk Level Suicide Risk Level: Moderate (q15 min suicide checks) Suicide Risk Level Comments: Acute risk is moderate given acute psychosis with paranoia and recent disorganization but denies SI today. Risk Factors Assessment : Yes Do You Have Access To A Gun?: No Health Problems: No Mental Health Diagnoses: Yes Substance Use Disorders: No Previous Psychiatric Hospitalization: Yes Protective Factors Assessment Employed: No Supportive Family: Yes Interval History Identifying Information TYESHA VAUGHN is a 46-year-old F who currently lives in supportive housing in [place], has a history of bipolar or schizoaffective disorder, and was admitted on 12/26/21 10:40 on a 302 involuntary commitment for disorganized behavior. Chief Complaint "I feel very well rested". Review of Systems Sleep Information Total Hours of Sleep: 7 Meal Information Percent Meal Consumed - Breakfast: 100 Percent Meal Consumed - Lunch: 100 Percent Meal Consumed - Dinner: 100 Nutrition Comment: Pt is currently sleeping Subjective Subjective Patient was seen & assessed and interval progress reviewed with treatment team nursing and social work. Spent time on the phone speaking with Tyesha's db2 systems programmer at her jail along side social work and reviewed conservator paperwork sent by her conservator. Conservator paperwork specifically notes they cannot make decisions regarding psychiatric treatment. Tyesha continues to endorse stable mood, denies any side effects from her medication. She continues to state she was taking lithium prior to admission and doesn't know why her level was low on admission. Reviewed that we will recheck level in the morning which she agrees with. She was able to discuss how she would drive home (going to [place] then [address] to [facility] then taking [address] to [place]). Discussed that we would prefer if she had family or other support getting home but will continue to explore options. She continues to deny SI, remains behaviorally appropriate though guarded. Physical Exam Psychiatric Orientation: alert, oriented x 3 and + guarded Apperance: appropriately dressed and appropriately groomed Eye Contact: good eye contact Motor Behavior: no abnormal motor movements Speech: normal rate/rhythm/volume of speech Affect: + blunted affect Mood: no depressed mood, no anxious mood and no irritable mood Thought Process: clear/coherent thought process Thought Content: reality based without delusions Suicidal Thoughts: denies suicidal thoughts Homicidal Thoughts: denies homicidal thoughts Hallucinations: no auditory hallucinations and no visual hallucinations Cognition: recent memory grossly intact, remote memory grossly intact, attention grossly intact and language grossly intact Insight: + fair insight Judgement: + poor judgement Vital Signs (Past 24 Hours) Last Vital Signs Temp 36.8 C 12/29/21 06:39 Pulse 94 H 12/29/21 06:39 Resp 18 12/29/21 06:39 BP 104/71 12/29/21 06:39 Pulse Ox 99 12/26/21 10:51 Results & Data ([facility]) Current Inpatient Medications Current Inpatient Medications: Current Inpatient Medications Acetaminophen (Acetaminophen 325 Mg Tab) 650 mg PO Q4H PRN PRN Reason: Headache or Minor Fever Stop: 01/25/22 10:38 Al Hydrox/Mg Hydrox/Simethicone (Aluminum/Magnesium Susp 30 Ml Udc) 30 ml PO Q4H PRN PRN Reason: GI Upset Stop: 01/25/22 10:38 Bismuth Subsalicylate (Bismuth Subsalicylate Liqd 236 Ml) 15 ml PO PRN PRN PRN Reason: Loose Stool Stop: 01/25/22 10:38 Hydroxyzine HCl (Hydroxyzine Hcl 25 Mg Tab) 50 mg PO HSZ PRN PRN Reason: Insomnia Stop: 01/25/22 10:38 Hydroxyzine HCl (Hydroxyzine Hcl 25 Mg Tab) 25 mg PO Q4H PRN PRN Reason: Anxiety Stop: 01/25/22 10:38 [place] Carbonate ([place] Carbonate 300 Mg Tab) 600 mg PO BID GONSALO Stop: 01/25/22 20:59 Last Admin: 12/29/21 08:49 Dose: 600 mg Documented by: Magnesium Hydroxide (Magnesium Hydroxide Susp 30 Ml Udc) 30 ml PO DAILY PRN PRN Reason: Constipation Stop: 01/25/22 10:38 Olanzapine (Olanzapine 5 Mg Tablet) 15 mg PO HS GONSALO Stop: 01/25/22 20:59 Last Admin: 12/28/21 21:11 Dose: 15 mg Documented by: Sodium Chloride (Sodium Chloride 0.65% Na Soln 45 Ml ([place])) 1 - 2 sprays NA PRN PRN PRN Reason: Nasal Dryness/Congestion Stop: 01/25/22 10:38 Mental Health & Subst Abuse Tx Therapist Name of Therapist: Patient reports therapist, but would not give name
[2021-12-29] MEDS: OLANZapine 5 MG TABLET PO SCH (21:39)
[2021-12-30] MEDS: LITHIUM CARBONATE 300 MG TAB PO SCH (08:51)
--- NOTE | 2021-12-30 11:32 | Discharge Summary ---
Date of Service December 30, 2021 History of Present Illness Per admission H&P by Dr. Kee: The patient is an unreliable historian although she seems superficially cooperative she has short attention and cannot expand on details. I attempted to confirm the information provided in the ED. The patient states she's employed by [employer] and [place] [facility] [place] [facility] She denies hearing voices and states that her cousin is "just trying to play tricks". She denies having any legal charges. She states she's been taking her lithium (level says otherwise). It is unclear when she ran out of Zyprexa. She seemed surprised to hear she was on an involuntary commitment. Reviewed her ri ghts that in [place] this is for up to 120 hrs. She denies having any side effects to meds and states she's adjusted to them over the years. She cannot explain why she was driving around [place] other than [address] is confusing and "kept getting on and off the highway." She thanked me for my timing abruptly ending the interview. She was cooperative with [place] 600 mgX1 and several hours later Zyprexa 5 mg as ordered. She was not agitated or aggressive, just confused/anxious. As per ED CM:Met with patient upon arrival to ED to complete mental health evaluation. Tyesha stated she is from [place], [place]. She stated she has been traveling to the [facility] to visit family. Tyesha was unable to state family she was visiting. She stated she made her way to [place] and turned around because she was "concerned the person I was going to visit would have conflict." Tyesha stated she has been driving around [place] for two days because she was having difficulty navigating the roads. Tyesha stated she couldn't "navigate the medians." She stated she has been sleeping in her car since in [place]. Tyesha denies any SI and denies stating she would "rather on the highway." Tyesha denies any prior suicide attempts. However, her cousin/Radha stated she "tried to overdose on pills with in the past year." Tyesha denies HI or aggression. She denies report of cousin that she went to [facility] that has a no contact order on her for stalking and harassment which Tyesha spend time in long-term for in the past. Tyesha would start to answer question but appears confused and unable to complete a thought. Tyesha refused to provide names of her outpatient psychiatrist and therapist stating "I know I'm not leaving here and don't want them bothered. Tyesha stated she has a "emissions repair technician that is the digital learning [employer] manager of person and gives reports to the lube worker that I'm a productive member of society. She stated she is "probated through court." She admits to living in Supportive Housing in [place], [place]. She refused to provide contact information for Supportive Housing home but did provide consent for this CM to call the home. She stated the name of home was [facility]. Tyesha eventually provided phone number to supportive [facility] and this CM was unsuccessful at reaching anyone by phone. Tyesha appears very guarded and suspicious. Call to kingsley/Radha to obtain additional information and clarification. Radha stated Tyesha has been calling her several times a day. She stated Tyesha told her she ran out of her medication approx. 12 days ago. (Tyesha reported she is taking her medication. However, lithium level low at 0.2). Radha stated Tyesha is manic, hallucinating, and delusional. Radha stated Tyesha is hearing voices and whispers through her phone which is reason she is unable to navigate her way home. She stated voices are telling her directions to drive. Radha stated Tyesha told her that she is also hearing voices telling "stories of graphic violence, chemical bombs, hostage situations, and the killing of people." Kingsley stated Tyesha called police on kingsley and her father with report that they were creating chemical bombs and killing people. Radha confirm that [place] has a conservator through the court that monitors her treatment and wellbeing. Radha stated Tyesha was traveling to see her mother who refused her visit 3X before patient turned around to return to [place]. Radha stated patient believes her phone is hacked. Radha stated patient was charged and spent time in [facility] long-term for stalking, harrassment, and violating a no contact order. Radha stated patient told her she went to [facility] when she was not home. Tyesha has been inpatient multiple times in the past, primarily in [place]. Physical Exam Vital Signs (Past 24 Hours) Last Vital Signs Temp 36.9 C 12/30/21 06:41 Pulse 66 05/03/22 06:43 Resp 16 12/30/21 06:41 BP 130/78 12/30/21 06:43 Pulse Ox 99 12/26/21 10:51 See admission H&P and DOD summary. Principal Diagnosis Schizoaffective disorder Psychiatric Data See daily stay summary. Tyesha was admitted on 302 commitment and initially refused to sign any ROIs and limited information was available as she lives out of state. Eventually she allowed for ROIs and we were able to clarify that she has an appointed conservator through [place] (but conservatorship legal document was reviewed and specifically states that conservator cannot make decisions regarding psychiatric hospitalization on Tyesha's behalf), has a supportive mcc in [place] ([facility], we were able to communicate with staff there and the nursing program director) and has outpatient providers including therapist and psychiatrist (efforts were made to contact her psychiatrist Dr. Singer but did not hear back). Tyesha was guarded during her admission and at times demonstrated some paranoia including not wanting her door to be closed, initially expressing concerns about her mother's wellbeing and not wanting to disclose details about her providers/housing in [place]. However, by her third day of admission she was able to tolerate more in-depth conversations and could engage in some reality-testing including noting that she now believes her mother is safe and expressing her desire to return to [place] and her home at [facility] and her job at [employer]. She consistently stated she had been taking her lithium BID while on her road trip to [place] even when we discussed that this was improbable given her low [place] level on admission. During her admission she consistently took her medications, denied any side effects, had good sleep, stable appetite, participated appropriately in groups and with peers and had no behavioral concerns. She tended to isolate to her room outside of groups, meals or when making phone calls but was engaged with the social/therapeutic milieu of the unit, safety was maintained and the patient was cooperative with care. Medication changes included restarting her olanzapine 15mg qhs and restarting her [place] 600mg BID and she tolerated this well. Baseline labs of thyroid function, kidney function, weight, electrolytes, CBC, and UA were preformed and WNL. [place] level on admission was 0.2 and on morning of discharge, after 5 days of Li, was 0.6. Recommend repeat lithium level, thyroid function and kidney function labwork at 6 months and then annually or anytime symptoms arise. Baseline labs of fasting glucose, fasting lipid profile, and weight were preformed and WNL. Recommend repeat fasting glucose and fasting lipid profile every 12 weeks and then annually. If symptoms arise recommend checking BP, EKG, prolactin level as clinically indicated or relevant. Tyesha was not felt to meet criteria for ongoing involuntary commitment via 303 as she consistently denied SI, HI, demonstrated no signs of acute isabella and while she demonstrated some signs of delusions and paranoia these were stable and did not interfere with her ability to meet her basic needs. She did not demonstrate any delusions or behaviors that raised concern for her ability to maintain her safety or safety towards others. She remained fully adherent with her medications throughout her stay. Conversations were held with her conservator and her residential mcc prior to expiration of her 302 status to discuss her symptoms and baseline functioning (has chronic delusions at baseline per these discussions). Reviewed potential options for transportation back to [place] and unfortunately no one was available from her family or residential mcc to accompany her from [place]. While having her drive home to [place] via her personal vehicle was not ideal it was deemed reasonable as she has a license, had been driving across the country without any accidents, and she demonstrated no psychiatric symptoms to suggest she should not be able to retain her license nor drive. She was able to describe the route she would take home, was provided with paper directions which she reviewed with staff and felt comfortable using and was able to provide logical and reasonable steps she would take should she get lost or have any issues on the drive home (call her father, call [facility], go to [employer] to buy a paper roadmap, ask gasoline attendant for help). She agreed to alert [facility] should she get caught in traffic or need to stop on the drive home as she understands they are [facility] [place] [facility]. She also demonstrated good insight and thought organization in reaching out to the local [employer] who had her car prior to leaving the hospital to confirm the amount it would cost to get her car back and confirmed that she had her keys and funds to pay for gas (and this was confirmed with her conservator). In the days leading up to discharge she consistently denied any SI and HI, sleep remained stable, she took her medications, had no medication side effects, she was behaviorally appropriate, attended to self-hygiene, and engaged with groups. She actively participated in safety planning and in discussions about ways to seek support and recognizing warning signs and utilizing coping skills should new symptoms of mood changes or anxiety emerge. On the day of discharge she actively participated in discussions about her follow-up appointments, medications, and plan to drive home. Day of Discharge Assessment Today the patient voices readiness for discharge. They note stability in mood and anxiety. They deny thoughts of harm to self or others. Thoughts are org anized and they are clinically improved from admission. She continues to present as somewhat guarded in some interactions but tolerates extended conversations, has organized and reality-based thought process and thought content in discussing discharge plans and does not endorse any acute psychotic symptoms, does not appear to be responding to any internal stimuli and does not endorses any delusions during our conversations today. At times continues to show some mild paranoia such as requesting that the door to her room remains open during interactions with providers. There is no evidence of acute psychosis. They improved in the hospital with support and re-initiation of her medication. They agree to take medications as prescribed and keep follow-up appointments. At the time of the discharge they are deemed to be stable and appropriate for outpatient level of care. They are not deemed to be at imminent risk of harm to self or others. They are aware of emergency and crisis services. Knows to call 911 or go to nearest emergency care center if in a crisis which cannot be handled as an outpatient. Transition of Care Transition Of Care Record: was reviewed with the patient Advance Directives Advance Directives Information Provided: Yes Advance Directives: No Mental Health Advance Directive: No Advance Directives on File: No Living Will: No Power of Service Unit Operator Oil Well: No Advance Directives Reason:: Declines as Mental Health Visit. Suicide Risk Level Suicide Risk Level Comments: Acute risk is low given decrease in psychosis symptoms, denial of anxiety, stable mood and denial of SI as well as lack of access to lethal means, stable sleep, and future-oriented. Chronic risk is moderate given some non-modifiable risk factors: psychiatric co-morbid diagnoses, periods of impulsivity, prior psychiatric hospitalizations, mood disorder, schizophrenia but also with protective factors. Counseled on ways to reduce acute and chronic risk including engaging with outpatient providers, using safety plan if needed, utilizing supports, taking medication, and using coping skills. Modifiable risk factors of acute psychosis and disorganized behaviors were addressed during hospitalization through re-initiation of medication, reality-testing, development of new coping skills, and safety planning. Risk Factors Assessment : Yes Do You Have Access To A Gun?: No Health Problems: No Mental Health Diagnoses: Yes Substance Use Disorders: No Previous Attempt: No Family History of Suicide: No Previous Psychiatric Hospitalization: Yes Hopelessness: No Protective Factors Assessment Employed: No Stable Relationships: Yes Supportive Family: Yes Good Rapport with Provider: Yes Discharge Data Lab Results 12/26/21 12/26/21 12/26/21 02:41 02:41 02:41 WBC 9.77 RBC 4.67 Hgb 13.7 Hct 42.3 MCV 90.6 MCH 29.3 MCHC 32.4 RDW Std Deviation 46.2 RDW Coeff of Mika 13.9 Plt Count 279 MPV 11.7 H Immature Gran % (Auto) 0.2 Neut % (Auto) 66.6 Lymph % (Auto) 25.3 [place] % (Auto) 7.1 Eos % (Auto) 0.7 Baso % (Auto) 0.1 Neut # (Auto) 6.51 H Lymph # (Auto) 2.47 [place] # (Auto) 0.69 H Eos # (Auto) 0.07 Baso # (Auto) 0.01 Immature Gran # (Auto) 0.02 Echinocytes 1+ Sodium 138 Potassium 3.8 Chloride 105 Carbon Dioxide 28 Anion Gap 5 BUN 10 Creatinine 0.61 Est Cr Clr Drug Dosing 136.5 Est GFR ( Amer) 127.8 Est GFR (Non-Af Amer) 110.3 BUN/Creatinine Ratio 16.4 Glucose 91 Fasting Glucose Calcium 9.5 Total Bilirubin 0.3 AST 13 ALT 10 Alkaline Phosphatase 62 Total Protein 7.2 Albumin 4.0 Globulin 3.2 Albumin/Globulin Ratio 1.3 Triglycerides Cholesterol LDL Cholesterol, Calc VLDL Cholesterol, Calc HDL Cholesterol Cholesterol/HDL Ratio TSH 2.036 Urine Color Urine Appearance Urine pH Ur Specific [place] Urine Protein Urine Glucose (UA) Urine Ketones Urine Blood Urine Nitrite Urine Bilirubin Urine Urobilinogen Ur Leukocyte Esterase Urine WBC (Auto) Urine RBC (Auto) U Hyaline Cast (Auto) U Epithel Cells (Auto) Urine Bacteria (Auto) Urine Mucus Urine Test Salicylates Urine Opiates Screen Ur Methadone, Qual Acetaminophen Urine Barbiturates Ur Phencyclidine (PCP) U Amphetamin/Meth Scrn MDMA (Ecstasy) Screen U Benzodiazepines Scrn [employer] [place] Ur Cocaine Metabolite U Marijuana (THC) Screen Ethyl Alcohol mg/dL SARS-CoV-2, RNA, NAAT 12/26/21 12/26/21 12/26/21 02:41 02:41 02:41 WBC RBC Hgb Hct MCV MCH MCHC RDW Std Deviation RDW Coeff of Mika Plt Count MPV Immature Gran % (Auto) Neut % (Auto) Lymph % (Auto) [place] % (Auto) Eos % (Auto) Baso % (Auto) Neut # (Auto) Lymph # (Auto) [place] # (Auto) Eos # (Auto) Baso # (Auto) Immature Gran # (Auto) Echinocytes Sodium Potassium Chloride Carbon Dioxide Anion Gap BUN Creatinine Est Cr Clr Drug Dosing Est GFR ( Amer) Est GFR (Non-Af Amer) BUN/Creatinine Ratio Glucose Fasting Glucose Calcium Total Bilirubin AST ALT Alkaline Phosphatase Total Protein Albumin Globulin Albumin/Globulin Ratio Triglycerides Cholesterol LDL Cholesterol, Calc VLDL Cholesterol, Calc HDL Cholesterol Cholesterol/HDL Ratio TSH Urine Color Urine Appearance Urine pH Ur Specific [place] Urine Protein Urine Glucose (UA) Urine Ketones Urine Blood Urine Nitrite Urine Bilirubin Urine Urobilinogen Ur Leukocyte Esterase Urine WBC (Auto) Urine RBC (Auto) U Hyaline Cast (Auto) U Epithel Cells (Auto) Urine Bacteria (Auto) Urine Mucus Urine Test Salicylates < 3.0 L Urine Opiates Screen Ur Methadone, Qual Acetaminophen < 3 L Urine Barbiturates Ur Phencyclidine (PCP) U Amphetamin/Meth Scrn MDMA (Ecstasy) Screen U Benzodiazepines Scrn [place] 0.2 L Ur Cocaine Metabolite U Marijuana (THC) Screen Ethyl Alcohol mg/dL < 10.0 SARS-CoV-2, RNA, NAAT 12/26/21 12/26/21 12/26/21 04:10 Unknown Unknown WBC RBC Hgb Hct MCV MCH MCHC RDW Std Deviation RDW Coeff of Mika Plt Count MPV Immature Gran % (Auto) Neut % (Auto) Lymph % (Auto) [place] % (Auto) Eos % (Auto) Baso % (Auto) Neut # (Auto) Lymph # (Auto) [place] # (Auto) Eos # (Auto) Baso # (Auto) Immature Gran # (Auto) Echinocytes Sodium Potassium Chloride Carbon Dioxide Anion Gap BUN Creatinine Est Cr Clr Drug Dosing Est GFR ( Amer) Est GFR (Non-Af Amer) BUN/Creatinine Ratio Glucose Fasting Glucose Calcium Total Bilirubin AST ALT Alkaline Phosphatase Total Protein Albumin Globulin Albumin/Globulin Ratio Triglycerides Cholesterol LDL Cholesterol, Calc VLDL Cholesterol, Calc HDL Cholesterol Cholesterol/HDL Ratio TSH Urine Color Yellow Urine Appearance Clear Urine pH 5.5 Ur Specific [place] 1.022 Urine Protein Negative Urine Glucose (UA) Negative Urine Ketones Trace H Urine Blood Negative Urine Nitrite Negative Urine Bilirubin Negative Urine Urobilinogen Negative Ur Leukocyte Esterase Trace H Urine WBC (Auto) 5-10 H Urine RBC (Auto) 0-4 U Hyaline Cast (Auto) 0 U Epithel Cells (Auto) >30 H Urine Bacteria (Auto) 2+ H Urine Mucus Present A Urine Test Salicylates Urine Opiates Screen Neg Ur Methadone, Qual Neg Acetaminophen Urine Barbiturates Neg Ur Phencyclidine (PCP) Neg U Amphetamin/Meth Scrn Neg MDMA (Ecstasy) Screen Neg U Benzodiazepines Scrn Neg [place] Ur Cocaine Metabolite Neg U Marijuana (THC) Screen Neg Ethyl Alcohol mg/dL SARS-CoV-2, RNA, NAAT NEGATIVE 12/26/21 12/27/21 12/30/21 Unknown 06:49 08:01 WBC RBC Hgb Hct MCV MCH MCHC RDW Std Deviation RDW Coeff of Mika Plt Count MPV Immature Gran % (Auto) Neut % (Auto) Lymph % (Auto) [place] % (Auto) Eos % (Auto) Baso % (Auto) Neut # (Auto) Lymph # (Auto) [place] # (Auto) Eos # (Auto) Baso # (Auto) Immature Gran # (Auto) Echinocytes Sodium Potassium Chloride Carbon Dioxide Anion Gap BUN Creatinine Est Cr Clr Drug Dosing Est GFR ( Amer) Est GFR (Non-Af Amer) BUN/Creatinine Ratio Glucose Fasting Glucose 90 Calcium Total Bilirubin AST ALT Alkaline Phosphatase Total Protein Albumin Globulin Albumin/Globulin Ratio Triglycerides 51 Cholesterol 135 LDL Cholesterol, Calc 71 VLDL Cholesterol, Calc 10 HDL Cholesterol 54 Cholesterol/HDL Ratio 2.5 TSH Urine Color Urine Appearance Urine pH Ur Specific [place] Urine Protein Urine Glucose (UA) Urine Ketones Urine Blood Urine Nitrite Urine Bilirubin Urine Urobilinogen Ur Leukocyte Esterase Urine WBC (Auto) Urine RBC (Auto) U Hyaline Cast (Auto) U Epithel Cells (Auto) Urine Bacteria (Auto) Urine Mucus Urine Test Negative Salicylates Urine Opiates Screen Ur Methadone, Qual Acetaminophen Urine Barbiturates Ur Phencyclidine (PCP) U Amphetamin/Meth Scrn MDMA (Ecstasy) Screen U Benzodiazepines Scrn [employer] [place] 0.6 Ur Cocaine Metabolite U Marijuana (THC) Screen Ethyl Alcohol mg/dL SARS-CoV-2, RNA, NAAT Hospital Course (1) Schizoaffective disorder: 12/30/21: remains behaviorally appropriate and stable for discharge as 302 is expiring and she does not meet criteria for ongoing involuntary commitment via 303 and declines voluntary treatment. 12/29/21: Continue medications and tx plan. Li level in AM. Spoke with mcc director. Reviewed [facility] legal paperwork. Will attempt to contact her psychiatrist. 12/28/21: Continue medications and tx plan. Will contact critical access hospital tomorrow. 12/27/21: Continue with Li and olanzapine. 12/26/21: The patient was admitted to the [facility] ([facility] mental health unit) on q15 min checks (behavioral with suicide precautions) for safety. The patient will participate in group, recreational, and milieu therapies and will be offered additional individual and family sessions as clinically appropriate. The patient is willing to resume her previous doses of [place] and Zyprexa and voiced reasonable understanding of risks/benefits/alternatives. May benefit form an atypical that can be given as ALMEIAD. Will attempt fasting labs in am. Mental Health & Subst Abuse Tx Psychiatrist Name of Psychiatrist: [facility] - Dr. Singer Psychiatrist's Phone Number: Call Date of Appointment with Psychiatrist: 01/01/22 Time of Appointment with Psychiatrist: 2:30 p.m. Psychiatric Appointment Comment: Will call you via telephone Therapist Name of Therapist: [facility] - Rosalinda Therapist's Date of Therapist Appointment: 01/02/22 Time of Therapist Appointment: 9:00 a.m. Therapy Appointment Comment: Will call you via telephone Post Discharge Appointments Other #1: Name of Aftercare Appointment: [facility] Phone Number of Aftercare Appointment: [phone] Aftercare Appointment Comment: [address] [place] [id number] #2: Name of Aftercare Appointment: Conservator - Krista Coulter Phone Number of Aftercare Appointment: [phone] Aftercare Appointment Comment: Follow up as needed Contact Information Discharge Discharge Address: [address] [place] [id number] Discharge Plan Discharge Items Patient Disposition: Home - Self-Care Reason For Visit: BIPOLAR DISORDER Discharge Diagnosis: Schizoaffective Disorder Activity: Resume your previous activity Non-emergency contact: Primary Care Provider, Psychiatrist and Therapist Call non-emergency contact if: you have any medication questions and your sy mptoms worsen Follow-up/Referrals: PCP,NO [Primary Care Provider] - Diet: Regular Addtl Attending Provider Instructions: SPECIAL CARE INSTRUCTIONS: 1. Follow through with your scheduled aftercare appointments. If unable to keep an appointment, please call to reschedule. 2. Take your medication only as prescribed. Medication should not be changed or stopped without the approval of your doctor. In the event of worsening symptoms or concerns about side effects, contact your doctor immediately. 3. Utilize new healthy coping skills, anger management skills, and stress management skills learned during your hospitalization. Journal feelings and process them with a support person. Identify stressors or situations that may result in relapse, deterioration or inappropriate behaviors and develop a plan to deal with those issues. 4. If your coping skills are ineffective and you are in crisis, contact your outpatient providers for direction. If unable to reach your providers, please call the [facility] CRISIS LINE AT , go to the [facility] walk-in center at [address] [place] [address] [facility], or go to the closest Emergency Room. 5. Avoid alcohol and un-prescribed drugs. 6. You have been provided with the Mental Health Advance Directives Pamphlet for your review. 7. Your condition is stable for discharge to outpatient level of care, but recovery is an ongoing process. Ifthoughts to harm yourself or others return, follow the safety plan developed during your stay. Planning for a safe return home includes securing weapons. Our treatment team recommends weaponsbe removed from the home until your outpatient provider reassesses your progress. In rare cases where the items themselvescannot be removed, guns and ammunitionshould be secured separatelyand keys stored by a reliable personoutside of the home. If you were admitted on an involuntary commitment, the police or other legal authorities may be involved in this process. AFTERCARE APPOINTMENTS: * Please call your insurance company prior to your scheduled appointment to confirm your aftercare providers are covered. Take your insurance information to your appointments. WHO TO CALL AND WHEN: Medical Emergencies: For questions or emergencies related to your hospital stay, please contact the Inpatient Behavioral Health Unit at [phone]. A card sorter is on-call 22/03 for the Behavioral Health Unit for emergencies At any time you feel your situation is an emergency, you may also call 911 immediately. Pending Studies at Discharge: No Stand-Alone Forms: My [facility] Medications and DC Order Prescriptions: Continued lithium carbonate 600 mg Capsule 600 mg PO BID 30 Days Qty: 60 RF: 0 olanzapine 15 mg tablet,disintegrating 15 mg PO HS 30 Days Qty: 30 RF: 0 Discharge Orders: Discharge Order (Routine); Ordered 12/30/21 Ordered By: Sandra Orellana Admission Data Admit Date/Time: 12/26/21 10:40 Attending Provider: Mariangel Kee Admit Provider: Mariangel Kee Primary Care Provider: PCP,NO Other Interventions: Discharge Summary Assessment (RN) Last Done: 12/30/21 11:32 PSY Interdisciplinary Discharge Planning Last Done: 12/30/21 11:34 Coding Level of Care Code 43855 D/C day mgmt > 30 min Diagnoses Schizoaffective disorder F25.9 Time Spent (min) 60
== END 2021-12-30 12:54 | disposition home or self-care (01) | DRG 885 ==
LOC: ED 01:37 → 3S 10:32 → SUATTDRO 10:40 → 3S 10:40
DX: F25.9 Schizoaffective disorder, unspecified